=== PATIENT | male | born 1995 | race African-American/Black ===

== ENCOUNTER 2024-08-10 16:11 | Emergency (ER) | payer OTHER | END 2024-08-10 17:07 | LOC: ERS 16:11 → EEVIPCON 16:11 → ERS 17:07 | DX: S62.306A Unspecified fracture of fifth metacarpal bone, right hand, initial encounter for closed fracture (principal); Z87.891 Personal history of nicotine dependence; W01.0XXA Fall on same level from slipping, tripping and stumbling without subsequent striking against object, initial encounter | CPT/HCPCS: 99283 ==